=== PATIENT | male | born 1970 | race African-American/Black ===

== ENCOUNTER 2020-06-07 13:20 | Emergency (ER) | payer OTHER ==
[~2020-06-07] VITALS: Ht 182.9 cm; Wt 99.8 kg
[2020-06-07] MEDS ORDERED: HYDROCODON-ACE1 EA12 PO (15:03)
[2020-06-07] MEDS ORDERED: CYCLOBENZAPRINE5 MG PO (15:03)
[2020-06-07 15:36] VITALS: BP 178/111
== END 2020-06-07 15:36 | disposition home or self-care (01) ==
LOC: ER 13:20
DX: M25.512 Pain in left shoulder (principal); R51.9 Headache, unspecified; M25.562 Pain in left knee; M54.2 Cervicalgia; R20.0 Anesthesia of skin; R11.10 Vomiting, unspecified; V89.2XXA Person injured in unspecified motor-vehicle accident, traffic, initial encounter; Y93.I9 Activity, other involving external motion; Y92.488 Other paved roadways as the place of occurrence of the external cause; Y99.8 Other external cause status